=== PATIENT | male | born 1980 | race Native Hawaiian/Other Pacific Islander ===

== ENCOUNTER 2024-02-14 04:15 | Inpatient (IN) | payer SELFPAY ==
[2024-02-14] VITALS (12 sets, daily range): BP systolic 146–250; BP diastolic 76–153
[~2024-02-14] VITALS: Ht 185.4 cm; Wt 182.5 kg
[2024-02-14 04:44] LABS: BASO % 0.2 % (0.0-1.0); EOS # 0.5 10*3/uL (0.0-0.4); EOS % 3.8 % (1.0-4.0); HEMATOCRIT 44.3 % (42.0-52.0); LYMPH # 2.5 10*3/uL (1.3-4.4); LYMPH % 19.9 % (27.0-41.0); MEAN CELL VOLUME 84.2 fl (80.0-94.0); MEAN CORPUSCULAR HGB 27.9 pg (27.0-31.0); MEAN CORPUSCULAR HGB CONC 33.2 g/dl (33.0-37.0); MEAN PLATELET VOLUME 10.4 fl (9.6-12.3); MONO # 0.9 10*3/uL (0.1-1.0); MONO % 6.9 % (3.0-9.0); NEUT # 8.8 10*3/uL (2.3-7.9); NEUT % 68.9 % (47.0-73.0); PLATELET COUNT AUTOMATED 278 10*3/uL (130-400); RED BLOOD COUNT 5.26 10*6/uL (4.50-5.90); RED CELL DISTRI WIDTH 13.1 % (0-14.5); WHITE BLOOD COUNT 12.7 10*3/uL (4.8-10.8)
[2024-02-14 05:00] LABS: ACT PARTIAL THROMBO TIME 26.2 SECONDS (20.0-32.1)
[2024-02-14 05:16] LABS: ALKALINE PHOSPHATASE 145 U/L (46-116); BUN 15 mg/dl (9-23); CHLORIDE 101 mmol/L (98-107); POTASSIUM 3.2 mmol/L (3.4-5.1); SGPT/ALT 21 U/L (5-49); TOTAL PROTEIN 7.4 gm/dL (6.0-8.0)
[2024-02-14] MEDS ORDERED: Labetalol Hydrochloride 20 MG/4 ML SYR IV ONE (05:50)
[2024-02-14] MEDS ORDERED: POTASSIUM CHLORIDE 20 MEQ TAB PO ONE (06:30)
[2024-02-14] MEDS ORDERED: Ondansetron Hydrochloride 4 MG/2 ML VIAL IV PRN (06:35)
[2024-02-14] MEDS ORDERED: ACETAMINOPHEN 325 MG TAB PO PRN (06:35)
[2024-02-14] MEDS ORDERED: DEXTROSE 10 % IN WATER 250 ML IV PRN (06:45)
[2024-02-14] MEDS ORDERED: hydrALAZINE hydrochloride 20 MG/ML VIAL IV ONE (06:50)
[2024-02-14] MEDS ORDERED: INSULIN LISPRO 1 UNIT/0.01 ML SQ SCH (07:30)
[2024-02-14] MEDS ORDERED: Enoxaparin Sodium 40 MG/0.4 ML SYR SC SCH (10:00)
[2024-02-14] MEDS ORDERED: Metoprolol Tartrate 25 MG TAB PO SCH (13:00)
[2024-02-14] MEDS ORDERED: NITROGLYCERIN 1 IN PACKET T SCH (17:00)
[2024-02-14] MEDS ORDERED: ASPIRIN ENTERIC COATED 81 MG TAB PO SCH (17:00)
[2024-02-14] MEDS ORDERED: CARVEDILOL 12.5 MG TAB PO SCH (17:00)
[2024-02-14] MEDS ORDERED: ATORVASTATIN CALCIUM 40 MG TABLET PO SCH (17:00)
[2024-02-14] MEDS ORDERED: LISINOPRIL 20 MG TAB PO SCH ×2 (17:00→22:00)
[2024-02-14] MEDS ORDERED: LISINOPRIL 10 MG TAB PO SCH (17:00)
[2024-02-14] MEDS ORDERED: hydrALAZINE hydrochloride 20 MG/ML VIAL IV PRN (17:25)
[2024-02-14] MEDS ORDERED: cloNIDine Hydrochloride 0.2 MG TAB PO PRN (17:25)
[2024-02-14] MEDS ORDERED: Insulin Glargine, Recombinan 1 UNIT/0.01 ML SC SCH (22:00)
[2024-02-15] VITALS: BP 148/77
[2024-02-15 07:04] LABS: BASO % 0.2 % (0.0-1.0); EOS # 0.3 10*3/uL (0.0-0.4); EOS % 2.3 % (1.0-4.0); HEMATOCRIT 41.9 % (42.0-52.0); LYMPH # 2.3 10*3/uL (1.3-4.4); LYMPH % 16.5 % (27.0-41.0); MEAN CELL VOLUME 84.8 fl (80.0-94.0); MEAN CORPUSCULAR HGB 27.9 pg (27.0-31.0); MEAN CORPUSCULAR HGB CONC 32.9 g/dl (33.0-37.0); MEAN PLATELET VOLUME 10.5 fl (9.6-12.3); MONO # 0.9 10*3/uL (0.1-1.0); MONO % 6.1 % (3.0-9.0); NEUT # 10.6 10*3/uL (2.3-7.9); NEUT % 74.4 % (47.0-73.0); PLATELET COUNT AUTOMATED 293 10*3/uL (130-400); RED BLOOD COUNT 4.94 10*6/uL (4.50-5.90); RED CELL DISTRI WIDTH 13.4 % (0-14.5); WHITE BLOOD COUNT 14.2 10*3/uL (4.8-10.8)
[2024-02-15 07:33] LABS: BUN 15 mg/dl (9-23); CHLORIDE 102 mmol/L (98-107); CHOLESTEROL 154 mg/dL (<200); FREE T4 1.59 ng/dl (0.89-1.76); LDL CHOLESTEROL 99 mg/dL (9-159); POTASSIUM 3.2 mmol/L (3.4-5.1); TRIGLYCERIDES 64 mg/dl (<150)
[2024-02-15 08:00] VITALS: BP 148/76
[2024-02-15] MEDS ORDERED: POTASSIUM CHLORIDE 20 MEQ TAB PO ONE (08:45)
[2024-02-15 12:00] VITALS: BP 153/92
[2024-02-15] MEDS ORDERED: Technetium Tc 99M Tetrofosmi 0.23 MG KIT IJ SCH (12:15)
[2024-02-15] MEDS ORDERED: HCTZ/Triamter 37.5/25 MG TAB PO SCH (13:45)
[2024-02-15 16:00] VITALS: BP 171/96
[2024-02-15 20:00] VITALS: BP 178/104
[2024-02-15] MEDS ORDERED: CARVEDILOL 25 MG TAB PO SCH (22:00)
[2024-02-16] VITALS: BP 137/66
[2024-02-16 06:15] LABS: BASO % 0.2 % (0.0-1.0); EOS # 0.5 10*3/uL (0.0-0.4); EOS % 3.3 % (1.0-4.0); LYMPH # 2.4 10*3/uL (1.3-4.4); LYMPH % 16.3 % (27.0-41.0); MEAN CORPUSCULAR HGB 28.4 pg (27.0-31.0); MEAN CORPUSCULAR HGB CONC 33.8 g/dl (33.0-37.0); MEAN PLATELET VOLUME 10.7 fl (9.6-12.3); MONO # 0.9 10*3/uL (0.1-1.0); MONO % 6.3 % (3.0-9.0); NEUT # 10.6 10*3/uL (2.3-7.9); NEUT % 73.5 % (47.0-73.0); PLATELET COUNT AUTOMATED 259 10*3/uL (130-400); RED CELL DISTRI WIDTH 13.4 % (0-14.5); WHITE BLOOD COUNT 14.4 10*3/uL (4.8-10.8)
[2024-02-16 06:51] LABS: BUN 15 mg/dl (9-23); CHLORIDE 103 mmol/L (98-107); POTASSIUM 3.4 mmol/L (3.4-5.1)
[2024-02-16 08:00] VITALS: BP 192/90
[2024-02-16] MEDS ORDERED: IBUPROFEN 600 MG TAB PO PRN (11:15)
[2024-02-16 11:54] VITALS: BP 162/70
[2024-02-16 12:00] VITALS: BP 139/71
[2024-02-16] MEDS ORDERED: LISINOPRIL20 MG PO (12:55)
[2024-02-16] MEDS ORDERED: TRIAMTERENE-HC1 EACH PO (12:55)
[2024-02-16] MEDS ORDERED: LANTUS SOL100 UNIT/1 SC (12:55)
[2024-02-16] MEDS ORDERED: ATORVASTATIN CA40 M1 PO (12:55)
[2024-02-16] MEDS ORDERED: CARVEDILOL25 MG PO (12:55)
[2024-02-16] MEDS ORDERED: METFORMIN HCL500 M2 PO (12:55)
[2024-02-16] MEDS ORDERED: NORVASC5 MG PO (12:55)
[2024-02-16] MEDS ORDERED: PERFLUTREN PROTEIN-A MICROSPHR 3 ML VIAL IV ONE (13:46)
[2024-02-17] MEDS ORDERED: amLODIPine besylate 5 MG TAB PO SCH (10:00)
== END 2024-02-16 15:10 | disposition home or self-care (01) | DRG 305 ==
LOC: ED 04:15 → 4E 06:31 → EDHOLD 06:31 → 4E 15:24
PROVIDERS: Family Medicine; Internal Medicine; Student in an Organized Health Care Education/Training Program; ADMIT Internal Medicine; ATTEND Internal Medicine
DX: I16.1 Hypertensive emergency (principal); E87.1 Hypo-osmolality and hyponatremia; R65.10 Systemic inflammatory response syndrome (SIRS) of non-infectious origin without acute organ dysfunction; Z68.43 Body mass index [BMI] 50.0-59.9, adult; E87.6 Hypokalemia; I11.9 Hypertensive heart disease without heart failure; E66.01 Morbid (severe) obesity due to excess calories; D72.9 Disorder of white blood cells, unspecified; E11.65 Type 2 diabetes mellitus with hyperglycemia; Z83.3 Family history of diabetes mellitus; Z82.49 Family history of ischemic heart disease and other diseases of the circulatory system; Z71.3 Dietary counseling and surveillance

== ENCOUNTER 2024-03-05 12:13 | Emergency (ER) | payer SELFPAY ==
[~2024-03-05] VITALS: Ht 185.4 cm; Wt 181.4 kg
[~2024-03-05 12:13] MED LIST: ATORVASTATIN CA40 M1 PO; CARVEDILOL25 MG PO; LANTUS SOL100 UNIT/1 SC; LISINOPRIL20 MG PO; METFORMIN HCL500 M2 PO; NORVASC5 MG PO; TRIAMTERENE-HC1 EACH PO
[2024-03-05] MEDS ORDERED: methylPREDNISolone sod succ 125 MG VIAL IV ONE (12:35)
[2024-03-05] MEDS ORDERED: diphenhydrAMINE hydrochloride 50 MG/ML VIAL IV ONE ×2 (12:35→15:20)
[2024-03-05] MEDS ORDERED: TRANEXAMIC ACID IN NACL,ISO-OS 100 ML IV ONE (12:45)
[2024-03-05] MEDS ORDERED: PREDNISONE20 M1 PO (16:07)
== END 2024-03-05 16:48 | disposition home or self-care (01) ==
LOC: ED 12:13
DX: T78.3XXA Angioneurotic edema, initial encounter (principal); I10 Essential (primary) hypertension